=== PATIENT | female | born 1985 | race Two or more races ===

== ENCOUNTER 2018-08-09 20:46 | Emergency (ER) | payer OTHER ==
[2018-08-09 21:24] VITALS: BP 110/67; PULSE 96; TEMP 97.5; BMI 24.3
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
[2018-08-09] MEDS ORDERED: ACETAMINOPHEN 500 MG TABLET (FP) PO ONE (22:12)
[2018-08-09] MEDS ORDERED: ACETAMINOPHEN 325 MG TABLET (FP) ONE (22:17)
[2018-08-09] MEDS ORDERED: diphenhydrAMINE HCL 25 MG CAPSULE (FP) PO ONE ×2 (22:34→22:42)
[2018-08-09] MEDS ORDERED: METOCLOPRAMIDE HCL 10 MG TABLET (FP) PO ONE ×2 (22:34→22:43)
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
[2018-08-09] MEDS ORDERED: ALBUTEROL SO4 8 GM HFA INHALER IH ONE (23:11)
[2018-08-09] MEDS ORDERED: ALBUTEROL SO4 0.083% IH SOL 2.5 MG/3 ML VIAL.NEB. NEB ONE (23:16)
== END 2018-08-09 23:47 | disposition home or self-care (01) ==
LOC: JER 20:46
PROC: 3E0F7GC Introduction of Other Therapeutic Substance into Respiratory Tract, Via Natural or Artificial Opening (ICD-10-PCS; principal; 2018-08-09)
DX: G43.809 Other migraine, not intractable, without status migrainosus (principal); J45.909 Unspecified asthma, uncomplicated; V43.62XA Car passenger injured in collision with other type car in traffic accident, initial encounter; Y92.414 Local residential or business street as the place of occurrence of the external cause; Y93.89 Activity, other specified; Y99.8 Other external cause status
CPT/HCPCS: 84703; 99282-25